=== PATIENT | female | born 1990 | race Caucasian/White ===

== ENCOUNTER 2020-11-05 15:52 | Emergency (ER) | payer OTHER ==
[2020-11-05] MEDS ORDERED: CEPHALEXIN500 MG PO (17:15)
== END 2020-11-05 17:34 | disposition home or self-care (01) ==
LOC: FER 15:52
DX: S61.211A Laceration without foreign body of left index finger without damage to nail, initial encounter (principal); Z23 Encounter for immunization; W29.8XXA Contact with other powered hand tools and household machinery, initial encounter; Y92.009 Unspecified place in unspecified non-institutional (private) residence as the place of occurrence of the external cause
CPT/HCPCS: 90471; 90715